=== PATIENT | female | born 1980 | race Caucasian/White ===

== ENCOUNTER 2017-12-02 14:15 | Emergency (ER) | payer SELFPAY ==
[2017-12-02] MEDS ORDERED: HYDROmorphONE/DILAUDID 2 MG/ML INJ IVP ONE ×2 (14:31→18:00)
[2017-12-02] MEDS ORDERED: ONDANSETRON 4 MG/2 ML VIAL IVP ONE (14:31)
[2017-12-02] MEDS ORDERED: NS 1,000 ML IV ONE (14:31)
[2017-12-02] MEDS ORDERED: methylPREDNISolone SOD SUCC 125 MG/2 ML VIAL IVP ONE (14:31)
--- NOTE | 2017-12-02 14:40 | EDPHY ---
H & P Stated Complaint: MS Flare, generalized pain, Back pain Time Seen by Provider: 12/02/17 14:21 HPI/ROS: CHIEF COMPLAINT: MS flare HISTORY OF PRESENT ILLNESS: The patient is a 37-year-old female with a history of multiple sclerosis who comes from the [facility] residential complaining of pain and tremors and nausea. She states that she left her fiance a few days ago and has been without her medications including Copaxin for the last 2 days. Patient states that she has been having some left-sided CVA pain but no dysuria. No fever. Also mild diarrhea. She suspected that this was from nerves because of her recent break-up. She then however began having spasticity ever shoulders and arms and felt a hugging sensation which for her is consistent with MS flares. She also reports tremors in her whole body. She is not currently on steroids. REVIEW OF SYSTEMS: Constitutional: denies: chills, fever, recent illness, recent injury EENTM: denies: blurred vision, double vision, nose congestion Respiratory: denies: cough, shortness of breath Cardiac: denies: chest pain, irregular heart rate, lightheadedness, palpitations Gastrointestinal/Abdominal: See HPI denies: abdominal pain, vomiting, blood streaked stools Genitourinary: denies: dysuria, frequency, hematuria, pain Musculoskeletal: See HPI Skin: denies: lesions, rash, jaundice, bruising Neurological: denies: headache, numbness, paresthesia, tingling, dizziness, weakness Hematologic/Lymphatic: denies: blood clots, easy bleeding, easy bruising Immunologic/allergic: denies: HIV/AIDS, transplant EXAM: GENERAL: Obese and in no acute distress. HEAD: Atraumatic, normocephalic. EYES: Pupils equal round and reactive to light, extraocular movements intact, sclera anicteric, conjunctiva are normal. ENT: TMs normal, nares patent, oropharynx clear without exudates. Moist mucous membranes. NECK: Normal range of motion, supple without lymphadenopathy or JVD. LUNGS: Breath sounds clear to auscultation bilaterally and equal. No wheezes rales or rhonchi. HEART: Regular rate and rhythm without murmurs, rubs or gallops. ABDOMEN: Soft, nontender, normoactive bowel sounds. No guarding, no rebound. No masses appreciated. BACK: No CVA tenderness, no spinal tenderness, step-offs or deformities EXTREMITIES: Normal range of motion, no pitting or edema. No clubbing or cyanosis. NEUROLOGICAL: Cranial nerves II through XII grossly intact. Normal speech, normal gait. 5/5 strength, normal movement in all extremities, normal sensation PSYCH: Normal mood, normal affect. SKIN: Warm, dry, normal turgor, no visible rashes or lesions. Source: Patient Exam Limitations: No limitations - Personal History LMP (Females 10-55): 8-14 Days Ago Current Tetanus Diphtheria and Acellular Pertussis (TDAP): Yes - Medical/Surgical History Hx Asthma: Yes Hx Chronic Respiratory Disease: No Hx Diabetes: No Hx Cardiac Disease: No Hx Renal Disease: No Hx Cirrhosis: No Hx Alcoholism: No Hx HIV/AIDS: No Hx Splenectomy or Spleen Trauma: No Other PMH: Asthma, Renal Stones, Vit D def, MS - Family History Significant Family History: No pertinent family hx - Social History Smoking Status: Current every day smoker Alcohol Use: Sober Drug Use: None Constitutional: Initial Vital Signs Temperature (C) 37.1 C 12/02/17 14:21 Heart Rate 77 12/02/17 14:21 Respiratory Rate 18 12/02/17 14:21 Blood Pressure 112/86 H 12/02/17 14:21 O2 Sat (%) 96 12/02/17 14:21 O2 Delivery Mode Room Air Allergies/Adverse Reactions: No Known Allergies Allergy (Unverified 12/02/17 14:20) Home Medications: Medication Instructions Recorded Cephalexin [Keflex] 500 mg PO TID #21 cap 12/02/17 Promethazine HCl [Phenergan 25mg 25 mg PO TID PRN #10 tab 12/02/17 (RX)] methylPREDNISolone [Medrol Dose 1 each PO AD #1 ea 12/02/17 Ottoniel] Medical Decision Making - Diagnostics EKG Interpretation: An EKG obtained and was read and documented in trace view. Please see trace view for full reading and report. Sinus rhythm, no peaked T-waves Imaging Results: Imaging Impressions Abdomen/Pelvis CT 12/02/17 15:07 Impression: 1. Nonobstructive lower pole right nephrolithiasis. 2. Status post appendectomy. 3. Right-sided constipation. 4. Elevated BMI and mild splenomegaly. Attention: This CT examination is specifically designed to evaluate patients who are clinically suspected of having acute obstructive uropathy. This examination does not use radiographic contrast, and as such, provides only a limited evaluation of the abdomen, pelvis, and retroperitoneum. If there is further clinical suspicion for pathological conditions other than obstructive uropathy, a complete CT evaluation of the abdomen and pelvis utilizing intravenous, oral, and rectal contrast should be considered. Findings were discussed with VISHAL ASTORGA MD at 15:45, on 12/02/2017. Imaging: Discussed imaging studies w/ cam milling machine operator Radiologist ED Course/Re-evaluation: 3:10 p.m. the patient has a elevated potassium. It sounds as though there may have been some concern about the blood draw. Will repeat the lab and obtain an EKG. She also has hematuria. Considering this and her high potassium also add a CK although there is no history consistent with rhabdomyolysis. I will also add a CT to rule out kidney stones which she states she has had before. 4:00 p.m. the patient is feeling somewhat better but still slightly nauseous and is having muscle tremors. I will treat her with Phenergan and Ativan. We discussed her lab results which are somewhat confusing. We will repeat the tests. Her 2nd potassium is improved but calcium appears dilute. It was drawn off of a line. The patient agrees to this. We discussed her CT scan which is overall reassuring. She thinks that this is primarily a MS flare. She states that she has electrical shock feelings in her hands. 6:00 p.m. We discussed the lab results. The patient is feeling much better. She is eager to go home. She states that she has had some urinary symptoms and back pain. I will start her on antibiotics for possible urinary tract infection. She is happy with this. She is also requesting a Medrol Dosepak and some nausea medication. We discussed indications for returning. Differential Diagnosis: Partial list of the Differential diagnosis considered include but were not limited to; urinary tract infection, kidney stone, MS flare and although unlikely based on the history and physical exam, I also considered diverticulitis, biliary disease, ischemia, obstruction. I discussed these differential diagnoses and the plan with the patient as well as the usual and expected course. The patient understands that the diagnosis is provisional and that in medicine we are not always correct and that further workup is often warranted. Usual and customary warnings were given. All of the patient's questions were answered. The patient was instructed to return to the emergency department should the symptoms at all worsen or return, otherwise to followup with the physician as we discussed. - Data Points Laboratory Results: Laboratory Results 12/02/17 14:32 12/02/17 16:25 12/02/17 12/02/17 12/02/17 16:25 15:24 14:32 WBC RBC Hgb Hct MCV MCH MCHC RDW Plt Count MPV Neut % (Auto) Lymph % (Auto) Clark % (Auto) Eos % (Auto) Baso % (Auto) Nucleat RBC Rel Count Absolute Neuts (auto) Absolute Lymphs (auto) Absolute Monos (auto) Absolute Eos (auto) Absolute Basos (auto) Absolute Nucleated RBC Immature Gran % Immature Gran # Sodium 139 mEq/L mEq/L 141 mEq/L mEq/L (135-145) (135-145) Potassium 4.8 mEq/L mEq/L 3.5 mEq/L mEq/L (3.5-5.2) (3.5-5.2) Chloride 107 mEq/L D mEq/L 117 mEq/L H D mEq/L (97-110) (97-110) Carbon Dioxide 25 mEq/l mEq/l 21 mEq/l L mEq/l (22-31) (22-31) Anion Gap 7 mEq/L L mEq/L 3 mEq/L L mEq/L (8-16) (8-16) BUN 14 mg/dL mg/dL 12 mg/dL mg/dL (7-23) (7-23) Creatinine 0.7 mg/dL mg/dL 0.5 mg/dL L mg/dL (0.6-1.0) (0.6-1.0) Estimated GFR > 60 > 60 Glucose 89 mg/dL mg/dL 75 mg/dL mg/dL (70-100) (70-100) Calcium 8.5 mg/dL D mg/dL 6.8 mg/dL L D mg/dL (8.5-10.4) (8.5-10.4) Total Bilirubin Conjugated Bilirubin Unconjugated Bilirubin AST ALT Alkaline Phosphatase Creatine Kinase 181 IU/L H IU/L (0-156) CK-MB (CK-2) Fraction 1.33 ng/mL ng/mL (0.00-3.19) CK-MB (CK-2) % 0.7 % % (0.0-4.0) Creatine Kinase Interp NEGATIVE (NEGATIVE) Total Protein Albumin Lipase Beta HCG, Qual Specimen Hemolysis Urine Color Urine Appearance Urine pH Ur Specific Barney Urine Protein Urine Ketones Urine Blood Urine Nitrate Urine Bilirubin Urine Urobilinogen Ur Leukocyte Esterase Urine RBC Cancelled Urine WBC Cancelled Ur Epithelial Cells Cancelled Ur Renal Epithelial Cell Cancelled Urine Crystals Cancelled Ammonium Urate Crystals Cancelled Calcium Carbonate Cryst Cancelled Calcium Phosphate Cryst Cancelled Calcium Oxalate Crystal Cancelled Leucine Crystals Cancelled Cystine Crystals Cancelled Uric Acid Crystals Cancelled Triple Phos Crystals Cancelled Sulfonamide Crystals Cancelled Cholesterol Crystals Cancelled Tyrosine Crystals Cancelled Bilirubin Crystals Cancelled Amorphous Sediment Cancelled Urine Bacteria Cancelled Epithelial Casts Cancelled Fatty Casts Cancelled Hyaline Casts Cancelled Granular Casts Cancelled Waxy Casts Cancelled Broad Casts Cancelled RBC Casts Cancelled WBC Casts Cancelled Urine Mucus Cancelled Urine Trichomonas Cancelled Urine Yeast Cancelled Urine Sperm Cancelled Ur Oval Fat Bodies Cancelled Ur Free Fat Droplets Cancelled Urine Glucose Urine Comment Cancelled 12/02/17 12/02/17 12/02/17 14:32 14:32 14:32 WBC 9.57 10^3/uL H 10^3/uL (3.80-9.50) RBC 5.18 10^6/uL 10^6/uL (4.18-5.33) Hgb 15.2 g/dL g/dL (12.6-16.3) Hct 46.4 % % (38.0-47.0) MCV 89.6 fL fL (81.5-99.8) MCH 29.3 pg pg (27.9-34.1) MCHC 32.8 g/dL g/dL (32.4-36.7) RDW 12.5 % % (11.5-15.2) Plt Count 330 10^3/uL 10^3/uL (150-400) MPV 9.6 fL fL (8.7-11.7) Neut % (Auto) 36.8 % L % (39.3-74.2) Lymph % (Auto) 53.8 % H % (15.0-45.0) Clark % (Auto) 6.4 % % (4.5-13.0) Eos % (Auto) 2.5 % % (0.6-7.6) Baso % (Auto) 0.4 % % (0.3-1.7) Nucleat RBC Rel Count 0.0 % % (0.0-0.2) Absolute Neuts (auto) 3.52 10^3/uL 10^3/uL (1.70-6.50) Absolute Lymphs (auto) 5.15 10^3/uL H 10^3/uL (1.00-3.00) Absolute Monos (auto) 0.61 10^3/uL 10^3/uL (0.30-0.80) Absolute Eos (auto) 0.24 10^3/uL 10^3/uL (0.03-0.40) Absolute Basos (auto) 0.04 10^3/uL 10^3/uL (0.02-0.10) Absolute Nucleated RBC 0.00 10^3/uL 10^3/uL (0-0.01) Immature Gran % 0.1 % % (0.0-1.1) Immature Gran # 0.01 10^3/uL 10^3/uL (0.00-0.10) Sodium 138 mEq/L mEq/L (135-145) Potassium 6.0 mEq/L H mEq/L (3.5-5.2) Chloride 104 mEq/L mEq/L (97-110) Carbon Dioxide 24 mEq/l mEq/l (22-31) Anion Gap 10 mEq/L mEq/L (8-16) BUN 15 mg/dL mg/dL (7-23) Creatinine 0.8 mg/dL mg/dL (0.6-1.0) Estimated GFR > 60 Glucose 81 mg/dL mg/dL (70-100) Calcium 9.1 mg/dL mg/dL (8.5-10.4) Total Bilirubin 1.3 mg/dL mg/dL (0.1-1.4) Conjugated Bilirubin 0.8 mg/dL H mg/dL (0.0-0.5) Unconjugated Bilirubin 0.5 mg/dL mg/dL (0.0-1.1) AST 61 IU/L H IU/L (14-46) ALT 54 IU/L H IU/L (9-52) Alkaline Phosphatase 57 IU/L IU/L (38-126) Creatine Kinase CK-MB (CK-2) Fraction CK-MB (CK-2) % Creatine Kinase Interp Total Protein 7.7 g/dL g/dL (6.3-8.2) Albumin 4.4 g/dL g/dL (3.5-5.0) Lipase 123 IU/L IU/L (23-300) Beta HCG, Qual NEGATIVE Specimen Hemolysis 196 Urine Color Urine Appearance Urine pH Ur Specific Barney Urine Protein Urine Ketones Urine Blood Urine Nitrate Urine Bilirubin Urine Urobilinogen Ur Leukocyte Esterase Urine RBC Urine WBC Ur Epithelial Cells Ur Renal Epithelial Cell Urine Crystals Ammonium Urate Crystals Calcium Carbonate Cryst Calcium Phosphate Cryst Calcium Oxalate Crystal Leucine Crystals Cystine Crystals Uric Acid Crystals Triple Phos Crystals Sulfonamide Crystals Cholesterol Crystals Tyrosine Crystals Bilirubin Crystals Amorphous Sediment Urine Bacteria Epithelial Casts Fatty Casts Hyaline Casts Granular Casts Waxy Casts Broad Casts RBC Casts WBC Casts Urine Mucus Urine Trichomonas Urine Yeast Urine Sperm Ur Oval Fat Bodies Ur Free Fat Droplets Urine Glucose Urine Comment 12/02/17 14:30 WBC RBC Hgb Hct MCV MCH MCHC RDW Plt Count MPV Neut % (Auto) Lymph % (Auto) Clark % (Auto) Eos % (Auto) Baso % (Auto) Nucleat RBC Rel Count Absolute Neuts (auto) Absolute Lymphs (auto) Absolute Monos (auto) Absolute Eos (auto) Absolute Basos (auto) Absolute Nucleated RBC Immature Gran % Immature Gran # Sodium Potassium Chloride Carbon Dioxide Anion Gap BUN Creatinine Estimated GFR Glucose Calcium Total Bilirubin Conjugated Bilirubin Unconjugated Bilirubin AST ALT Alkaline Phosphatase Creatine Kinase CK-MB (CK-2) Fraction CK-MB (CK-2) % Creatine Kinase Interp Total Protein Albumin Lipase Beta HCG, Qual Specimen Hemolysis Urine Color YELLOW Urine Appearance HAZY Urine pH 7.0 (5.0-7.5) Ur Specific Barney 1.023 (1.002-1.030) Urine Protein NEGATIVE (NEGATIVE) Urine Ketones TRACE H (NEGATIVE) Urine Blood 3+ H (NEGATIVE) Urine Nitrate NEGATIVE (NEGATIVE) Urine Bilirubin NEGATIVE (NEGATIVE) Urine Urobilinogen 2.0 EU H EU (0.2-1.0) Ur Leukocyte Esterase NEGATIVE (NEGATIVE) Urine RBC 25-50 /hpf H /hpf (0-3) Urine WBC 1-3 /hpf /hpf (0-3) Ur Epithelial Cells 3+ /lpf H /lpf (NONE-1+) Ur Renal Epithelial Cell Urine Crystals Ammonium Urate Crystals Calcium Carbonate Cryst Calcium Phosphate Cryst Calcium Oxalate Crystal Leucine Crystals Cystine Crystals Uric Acid Crystals Triple Phos Crystals Sulfonamide Crystals Cholesterol Crystals Tyrosine Crystals Bilirubin Crystals Amorphous Sediment Urine Bacteria Epithelial Casts Fatty Casts Hyaline Casts Granular Casts Waxy Casts Broad Casts RBC Casts WBC Casts Urine Mucus 1+ /lpf /lpf (NONE-1+) Urine Trichomonas Urine Yeast Urine Sperm Ur Oval Fat Bodies Ur Free Fat Droplets Urine Glucose NEGATIVE (NEGATIVE) Urine Comment Medications Given: Discontinued Medications Hydromorphone HCl (Dilaudid) 0.5 mg IVP EDNOW ONE Stop: 12/02/17 14:32 Last Admin: 12/02/17 14:53 Dose: 0.5 mg Hydromorphone HCl (Dilaudid) 0.5 mg IVP EDNOW ONE Stop: 12/02/17 18:01 Last Admin: 12/02/17 18:10 Dose: 0.5 mg Sodium Chloride (Ns) 1,000 mls @ 0 mls/hr IV EDNOW ONE; Wide Open PRN Reason: Protocol Stop: 12/02/17 14:32 Last Admin: 12/02/17 14:52 Dose: 1,000 mls Lorazepam (Ativan Injection) 1 mg IVP EDNOW ONE Stop: 12/02/17 16:06 Last Admin: 12/02/17 16:30 Dose: 1 mg Methylprednisolone Sodium Succinate (Solu-Medrol) 125 mg IVP EDNOW ONE Stop: 12/02/17 14:32 Last Admin: 12/02/17 14:54 Dose: 125 mg Ondansetron HCl (Zofran) 4 mg IVP EDNOW ONE Stop: 12/02/17 14:32 Last Admin: 12/02/17 14:54 Dose: 4 mg Promethazine HCl (Phenergan) 12.5 mg IVP EDNOW ONE Stop: 12/02/17 16:05 Last Admin: 12/02/17 16:30 Dose: 12.5 mg Departure - Departure Disposition: Home, Routine, Self-Care Clinical Impression: Multiple sclerosis Urinary tract infection Qualifiers: Urinary tract infection type: site unspecified Hematuria presence: without hematuria Qualified Code(s): N39.0 - Urinary tract infection, site not specified Condition: Fair Instructions: Urinary Tract Infection in Women (ED), Multiple Sclerosis (DC) Referrals: NONE *PRIMARY CARE P,. [Primary Care Provider] - As per Instructions Prescriptions: Cephalexin [Keflex] 500 mg PO TID #21 cap methylPREDNISolone [Medrol Dose Ottoniel] 1 each PO AD #1 ea Promethazine HCl [Phenergan 25mg (RX)] 25 mg PO TID PRN #10 tab PRN Reason: Nausea & Vomiting
[2017-12-02 15:11] LABS: PLATELET COUNT 330 10^3/uL (150-400)
--- NOTE | 2017-12-02 15:20 | CPEKG ---
Heart Rate: 90 RR Interval: 667 P-R Interval: 133 QRSD Interval: 90 QT Interval: 372 QTC Interval: 455 P [place]: 29 QRS [place]: 2 T Wave [place]: 10 EKG Severity - NORMAL ECG - EKG Impression: SINUS RHYTHM Electronically Signed By: Maxi Francis 02-Dec-2017 15:52:46
[2017-12-02 15:52] LABS: CREATINE KINASE 181 IU/L (0-156)
[2017-12-02] MEDS ORDERED: PROMETHAZINE HCL 25 MG/ML INJ IVP ONE (16:04)
[2017-12-02] MEDS ORDERED: LORazepam 2 MG/ML INJ IVP ONE (16:05)
[2017-12-02 18:31] VITALS: BP 115/86
== END 2017-12-02 18:29 | disposition home or self-care (01) ==
LOC: EEVIPCON 14:15
DX: G35 Multiple sclerosis (principal); N39.0 Urinary tract infection, site not specified; J45.909 Unspecified asthma, uncomplicated; F17.200 Nicotine dependence, unspecified, uncomplicated; B96.89 Other specified bacterial agents as the cause of diseases classified elsewhere; E86.9 Volume depletion, unspecified
CPT/HCPCS: 96374; J1170; J2060; J2405; J2550; J2930

== ENCOUNTER 2017-12-16 16:55 | Emergency (ER) | payer SELFPAY ==
[2017-12-16 17:19] VITALS: BP 142/62
--- NOTE | 2017-12-16 17:24 | EDPHY ---
H & P Time Seen by Provider: 12/16/17 17:20 HPI/ROS: Chief complaint. Back pain HPI. 37-year-old female with neck and back pain for 2-3 weeks. Worse past 2-3 days. No injury. No leg or arm weakness. No bowel or bladder symptoms. It is from the base of her skull through her neck and across to both shoulders. It hands in the mid back. She has no low back pain. She has had a history of neck and upper back pain. She tells me she has bone spurs in the cervical and upper thoracic vertebra. She has been using ibuprofen with inadequate relief. ROS Constitutional. no fever/chills, no weakness Eyes. no problems with vision ENT. no sore throat, no nasal drainage Cardiovascular. no chest pain Respiratory. no shortness of breath, no cough Abdominal. no abdominal pain, no nausea/vomiting, no diarrhea . no problems urinating MS. Neck and upper back pain Skin. no rash Lymph. no swollen glands Neuro. no headache, no dizziness, no difficulty walking or with speech Past Medical/Surgical History: Past medical history asthma, kidney stones, vitamin-D deficiency, MS, appendectomy, cholecystectomy, recent UTI Social History: Patient is in a safe house, daily smoker, no alcohol Smoking Status: Current every day smoker Physical Exam: General Appearance: Alert well-developed female mild distress vital signs are stable Eyes: Pupils equal and round no pallor or injection. ENT, Mouth: Mucous membranes are moist. Respiratory: There are no retractions, lungs are clear to auscultation. Cardiovascular: Regular rate and rhythm. Gastrointestinal: Abdomen is soft and nontender, no masses, bowel sounds normal. Neurological: Awake and alert, sensory and motor exams grossly normal. Skin: Warm and dry, no rashes. Musculoskeletal: No particular tenderness over the cervical spine. She has paracervical and bilateral trapezial discomfort as well as discomfort to palpation to the medial aspect of both scapulas. Extremities symmetrical, full range of motion. Psychiatric: Patient is oriented X 3, there is no agitation. Constitutional: Initial Vital Signs Temperature (C) 36.6 C 12/16/17 17:16 Heart Rate 88 12/16/17 17:16 Respiratory Rate 20 12/16/17 17:16 Blood Pressure 142/62 H 12/16/17 17:16 O2 Sat (%) 96 12/16/17 17:16 O2 Delivery Mode Room Air Allergies/Adverse Reactions: No Known Allergies Allergy (Unverified 12/16/17 15:11) Home Medications: Medication Instructions Recorded Cyclobenzaprine [Flexeril 10 MG 10 mg PO TID PRN #10 tab 12/16/17 (*)] Gabapentin 12/16/17 Keflex 12/16/17 Lidocaine 4%/Menthol 1% [Icy Hot 2 patch TD DAILY #12 patch 12/16/17 Lidocaine/Menthol 4%/1% Patch (*)] Promethazine HCl 12/16/17 Medical Decision Making Procedures: Lidocaine patches applied ED Course/Re-evaluation: Patient remained stable. She and I discussed treatment plan including criteria for return importance follow-up further evaluation. She expresses understanding and agreement Differential Diagnosis: I think this is muscular. There is no evidence for cauda equina syndrome or radiculopathy or compression causing weakness of the upper or lower extremities. Departure - Departure Disposition: Home, Routine, Self-Care Clinical Impression: Cervical muscle strain Qualifiers: Encounter type: initial encounter Qualified Code(s): S16.1XXA - Strain of muscle, fascia and tendon at neck level, initial encounter Condition: Good Instructions: Acute Neck Pain (ED) Additional Instructions: Lidocaine patches and placed them for 12 hr and then remove for 12 hr. Ibuprofen 600 mg every 6 hr for discomfort. Flexeril as muscle relaxer. Return for worsening symptoms. Re-evaluation in 2-3 days if not improving Referrals: NONE *PRIMARY CARE P,. [Primary Care Provider] - As per Instructions Cleve Ng DO [Doctor of Osteopathy] - 2-3 days, if not improved Prescriptions: Cyclobenzaprine [Flexeril 10 MG (*)] 10 mg PO TID PRN #10 tab PRN Reason: Spasms Lidocaine 4%/Menthol 1% [Icy Hot Lidocaine/Menthol 4%/1% Patch (*)] 2 patch TD DAILY #12 patch
[2017-12-16] MEDS ORDERED: LIDOCAINE 4%/MENTHOL 1% PATCH TD ONE (17:32)
[2017-12-16] MEDS ORDERED: CYCLOBENZAPRINE 10 MG TAB PO ONE (17:57)
[2017-12-16] MEDS ORDERED: PATCH REMOVAL 1 EA PATCH TD SCH (21:00)
== END 2017-12-16 17:46 | disposition home or self-care (01) ==
LOC: CED 16:55 → EEVIPCON 16:55 → CED 17:46
DX: S16.1XXA Strain of muscle, fascia and tendon at neck level, initial encounter (principal); F17.200 Nicotine dependence, unspecified, uncomplicated; J45.909 Unspecified asthma, uncomplicated; X58.XXXA Exposure to other specified factors, initial encounter

== ENCOUNTER → 2017-12-16 | Emergency (ER) | payer SELFPAY ==
[2017-12-16 15:16] VITALS: BP 108/78
== END | disposition home or self-care (01) ==
LOC: EEVIPCON 14:53
DX: Z53.21 Procedure and treatment not carried out due to patient leaving prior to being seen by health care provider (principal)

== ENCOUNTER 2017-12-19 13:53 | Emergency (ER) | payer SELFPAY ==
[~2017-12-19 13:53] MED LIST: methylPREDNISolone 4 MG TAB PO SCH
--- NOTE | 2017-12-19 15:57 | EDPHY ---
HPI/HX/ROS/PE/MDM Narrative: CHIEF COMPLAINT: Nausea, vomiting, weakness HISTORY OF PRESENT ILLNESS: The patient is a 37 y/o female with a history of MS, kidney stones, and several abdominal surgeries, complaining of weakness, nausea, vomiting, and urinary complaints. On 11/26/17, 3 weeks ago, she developed urinary frequency and a burning sensation while urinating. Denies blood in her urine or fever. On , she presented to this emergency department and was diagnosed with a UTI. ( Cultures eventually demonstrated greater than 5 colony counts.) She was placed on Keflex, which she completed. For the past couple of weeks she has also had intermittent swelling in her extremities. On 12/16/17, 3 days ago, she returned to this emergency department complaining of similar symptoms as her prior visit , but she also had upper back pain. She was diagnosed with a cervical strain and prescribed PO Flexeril and Lidocaine patches. Last night she had intermittent chills and vomited. Today she vomited again, developed urinary urgency, right-sided flank pain, and generalized weakness. These symptoms are aggravating her normal MS symptoms, which are typically weakness and imbalance. Denies recent falls. She is currently feeling nauseous, weak, and has urinary urgency. No fever, chest pain, shortness of breath, palpitations, diarrhea, headache, lightheadedness. REVIEW OF SYSTEMS: Aside from elements discussed in the HPI, a comprehensive 10-point review of systems was reviewed and is negative. PAST MEDICAL HISTORY: MS, asthma, spinal stenosis (C5-7), kidney stones, cholecystectomy, appendectomy, tubal ligation SOCIAL HISTORY: Currently staying at [facility] house in [place], admits to tobacco and marijuana use VITAL SIGNS: Reviewed by me GENERAL: Is tired, nauseous, and has urinary urgency. Slightly overweight, resting comfortably in no respiratory distress. HEENT: Atraumatic. Eyes: No icterus, no injection. Mouth: moist mucous membranes. No erythema or lesions. Neck: supple with no adenopathy. LUNGS: Clear to auscultation bilaterally, no wheezes, rhonchi or rales. CARDIAC: Regular rate and rhythm, no rubs, murmurs or gallops. ABDOMEN: Soft, nontender, nondistended, bowel sounds normal. BACK: Mild right CVA tenderness. EXTREMITIES: Mild upper extremity tremor. No trauma. No edema. Range of motion is normal throughout. NEURO: Alert and oriented, grossly nonfocal. SKIN: Warm and dry, no rash. PSYCHIATRIC: Normal mentation, no agitation. Portions of this note were transcribed by a medical billing associate. I personally performed a history, physical exam, medical decision making, and confirmed accuracy of information the transcribed note. ED Course: The patient is a 37 y/o female with a history of MS, kidney stones, and several abdominal surgeries, presenting with weakness, nausea, and urinary urgency. On exam she has mild right CVA tenderness and a generalized tremor. Labs ordered. 4mg IV Zofran and 1L IV NS administered. Difficult to establish an IV; labs for chemistries drawn but not for CBC. Patient declining further IV attempts; will hydrate orally. 1710: Patient is still nauseous; additional 4mg po Zofran administered. 1750: Patient's UA does not reveal a UTI. Her blood work reveals normal electrolytes. 175: Reassessed patient and discussed laboratory findings. She continues to complain of feeling diffuse pain related to her MS as well as feeling quite weak. EKG and troponin ordered. I have discussed follow up with a neurologist for her MS; she has been referred to Dr. Levi. 300mg PO Gapapentin administered for patient's back pain and a Medrol Dosepak was provided for treatment of the patient's MS flare. 181: 12-LEAD EKG: Please see the full report in [facility]. My interpretation: Normal sinus rhythm with a rate of 84, nonspecific T abnormalities in the anterior leads. 190: Patient's troponin was rejected in the lab. Patient was advised that we need to send another troponin. She got up and went to the restroom and then eloped from the emergency department. She understood that we had not completed our evaluation and that we were interested in being sure that her generalized weakness did not have a significant cause such as a cardiac cause. Patient left without receiving her discharge instructions MDM: Differential diagnosis of the patient's weakness was considered including but not limited to electrolyte abnormality, anemia, cardiac ischemia, CVA, spinal cord abnormality, and infectious causes. Patients evaluation incomplete as cbc and troponin were not obtained. Patient' s primary complaint is of weakness and pain (typical of her MS flare.) She was aware that our evaluation is incomplete and eloped without notifying staff. - Data Points Laboratory Results: Laboratory Results 12/19/17 17:02 Medications Given: Discontinued Medications Gabapentin (Neurontin) 300 mg PO EDNOW ONE Stop: 12/19/17 18:03 Last Admin: 12/19/17 18:17 Dose: 300 mg Sodium Chloride (Ns) 1,000 mls @ 0 mls/hr IV ONCE ONE; Wide Open PRN Reason: Protocol Stop: 12/19/17 16:13 Last Admin: 12/19/17 17:58 Dose: Not Given Ondansetron HCl (Zofran) 4 mg IVP EDNOW ONE Stop: 12/19/17 16:13 Last Admin: 12/19/17 17:10 Dose: Not Given Ondansetron HCl (Zofran Odt) 4 mg PO EDNOW ONE Stop: 12/19/17 17:10 Last Admin: 12/19/17 17:10 Dose: 4 mg General Time Seen by Provider: 12/19/17 15:54 Initial Vital Signs: Initial Vital Signs Temperature (C) 37.0 C 12/19/17 14:00 Heart Rate 103 H 12/19/17 14:00 Respiratory Rate 18 12/19/17 14:00 Blood Pressure 100/62 12/19/17 14:00 O2 Sat (%) 94 12/19/17 14:00 O2 Delivery Mode Room Air Allergies/Adverse Reactions: No Known Allergies Allergy (Unverified 12/16/17 15:11) Home Medications: Medication Instructions Recorded methylPREDNISolone [Medrol Dose 4 mg PO DAILY #1 each 12/19/17 Ottoniel] Departure - Departure Disposition: Home, Routine, Self-Care Clinical Impression: Multiple sclerosis, Left before treatment completed Fatigue Qualifiers: Fatigue type: chronic, unspecified Qualified Code(s): R53.82 - Chronic fatigue , unspecified Condition: Good Instructions: Multiple Sclerosis (DC), Fatigue (ED) Additional Instructions: Follow-up with your primary doctor within 72 hours. Follow-up with Dr. Levi, neurologist, regarding your MS in the next week. Return to the Emergency Department for fever, worsening pain, flank pain or failure to improve within 72 hours. (Patient eloped from the emergency department without receiving these discharge instructions) Referrals: Claudette Ayala MD [place] [place] - As per Instructions [facility],. [Clinic] - As per Instructions Hernandez Levi MD [Medical Doctor] - As per Instructions Prescriptions: methylPREDNISolone [Medrol Dose Ottoniel] 4 mg PO DAILY #1 each Report Scribed for: Soo Christianson Report Scribed by: Deanna Best Date of Report: 12/19/17 Time of Report: 16:51
[2017-12-19] MEDS ORDERED: NS 1,000 ML IV ONE (16:12)
[2017-12-19] MEDS ORDERED: ONDANSETRON 4 MG/2 ML VIAL IVP ONE (16:12)
[2017-12-19] MEDS ORDERED: ONDANSETRON DISINTEGRATING 4 MG TAB ONE (17:06)
[2017-12-19] MEDS ORDERED: ONDANSETRON DISINTEGRATING 4 MG TAB PO ONE (17:09)
[2017-12-19] MEDS ORDERED: GABAPENTIN 300 MG CAP PO ONE (18:02)
--- NOTE | 2017-12-19 18:16 | CPEKG ---
Heart Rate: 84 RR Interval: 714 P-R Interval: 140 QRSD Interval: 88 QT Interval: 376 QTC Interval: 445 P [place]: 46 QRS [place]: 19 T Wave [place]: 22 EKG Severity - ABNORMAL ECG - EKG Impression: SINUS RHYTHM EKG Impression: NONSPECIFIC T ABNORMALITIES, ANTERIOR LEADS Electronically Signed By: Soo Christianson 19-Dec-2017 23:07:26
[2017-12-19 18:33] VITALS: BP 142/87
== END 2017-12-19 19:22 | disposition home or self-care (01) ==
LOC: EDUNIT#
DX: G35 Multiple sclerosis (principal); R53.82 Chronic fatigue, unspecified; J45.909 Unspecified asthma, uncomplicated; Z90.49 Acquired absence of other specified parts of digestive tract; Z98.51 Tubal ligation status